=== PATIENT | male | born 1940 | race Caucasian/White ===

== ENCOUNTER → 2020-11-08 | Outpatient (CLI) | payer MEDICARE ==
[~2020-11-08] MED LIST: ANTIVERT50 MG PO; ARICEPT10 MG PO; ASPIRIN CHEWABL81 MG PO; CLINDAMYCIN HC300 MG PO; FLOMAX0.4 MG PO; HYDROCODON-ACE1 EAC4 PO; K-DUR TAB 10 M10 MEQ PO; LEVOFLOXACIN500 MG PO; LEVOXYL150 MCG PO; NORVASC5 MG PO; PROTONIX40 MG PO; VITAMIN B-12250 MCG PO; VITAMIN D3125 MCG/0. PO
[2020-11-08 11:31] LABS: HEMOGLOBIN 10.2 gm/dl (14.0-17.5); RED BLOOD COUNT 3.36 M/UL (4.20-5.50); WHITE BLOOD COUNT 9.1 K/UL (4.5-11.0)
== END ==
LOC: LAB 10:52
PROVIDERS: Internal Medicine Cardiovascular Disease
DX: I45.5 Other specified heart block (principal); I49.5 Sick sinus syndrome
CPT/HCPCS: 36415; 71046; 80048; 85025

== ENCOUNTER 2020-11-10 11:27 | Outpatient (CLI) | payer MEDICARE ==
[~2020-11-10] VITALS: Ht 175.3 cm; Wt 89.4 kg
[2020-11-10] MEDS ORDERED: ASPIRIN CHEWABL81 MG PO (11:57)
[2020-11-10] MEDS ORDERED: NORVASC5 MG PO (11:58)
[2020-11-10] MEDS ORDERED: PROTONIX40 MG PO (11:58)
[2020-11-10] MEDS ORDERED: ANTIVERT50 MG PO (11:58)
[2020-11-10] MEDS ORDERED: K-DUR TAB 10 M10 MEQ PO (11:59)
[2020-11-10] MEDS ORDERED: VITAMIN D3125 MCG/0. PO (11:59)
[2020-11-10] MEDS ORDERED: ARICEPT10 MG PO (12:00)
[2020-11-10] MEDS ORDERED: FLOMAX0.4 MG PO (12:00)
[2020-11-10] MEDS ORDERED: VITAMIN B-12250 MCG PO (12:01)
[2020-11-10] MEDS ORDERED: LEVOXYL150 MCG PO (12:01)
[2020-11-10] MEDS ORDERED: HYDROCODON-ACE1 EAC4 PO (14:05)
[2020-11-10] MEDS ORDERED: CLINDAMYCIN HC300 MG PO (14:05)
[2020-11-10] MEDS ORDERED: LEVOFLOXACIN500 MG PO (14:05)
--- NOTE | 2020-11-11 07:23 | NUR ---
0714- CALLED DR PINEDO WITH TELE READING OF [facility]. NEW ORDER TO OBTAIN EKG.
[2020-11-11] MEDS ORDERED: LOPRESSOR 25 MG25 MG PO ×2 (11:23→11:24)
== END 2020-11-11 12:30 | disposition home or self-care (01) ==
LOC: CATH 11:27 → M/S 15:40 → CATH 11-11 12:30
DX: I49.5 Sick sinus syndrome (principal); I47.2 Ventricular tachycardia; I45.5 Other specified heart block; I12.9 Hypertensive chronic kidney disease with stage 1 through stage 4 chronic kidney disease, or unspecified chronic kidney disease; N18.9 Chronic kidney disease, unspecified; I63.9 Cerebral infarction, unspecified; E78.5 Hyperlipidemia, unspecified; K21.9 Gastro-esophageal reflux disease without esophagitis; G30.9 Alzheimer's disease, unspecified; F41.9 Anxiety disorder, unspecified; M19.90 Unspecified osteoarthritis, unspecified site; F32.9 Major depressive disorder, single episode, unspecified; E53.8 Deficiency of other specified B group vitamins; E55.9 Vitamin D deficiency, unspecified; K50.90 Crohn's disease, unspecified, without complications; G47.30 Sleep apnea, unspecified; Z79.82 Long term (current) use of aspirin; Z79.899 Other long term (current) drug therapy; Z87.891 Personal history of nicotine dependence
CPT/HCPCS: 33208; 93005; 99152; 99153; C1785; C1898; J1644; J2250; J3010; J3370; J7040; J7050; J7070